=== PATIENT | female | born 1970 | race Caucasian/White ===

== ENCOUNTER → 2022-02-06 | Outpatient (CLI) | payer BC ==
--- NOTE | 2022-02-06 17:58 | P.GSHP ---
History of Present Illness H&P Date: 02/06/22 Chief Complaint: Abnormal right breast mammogram Tara is a 51-year-old [place] [address]. Additional views were obtained and [id number]. Microcalcifications of concern were identified in the right breast in the upper outer aspect. No lesions of concern were identified in the left breast. The patient herself does not feel any new lumps masses or nodules of concern in either breast. She does have uterine fibroids and has been receiving progesterone 2 weeks on and 2 weeks off for the past 6 months. The patient has had bilateral occasional yellow discharge there is been no blood present in this and she has had the intermittent discharge for years. Caffeine: One glass of pop per day Nicotine: Negative Chocolate: Daily control pills: Approximately 1 year 5 years ago Family history: Maternal grandfather: Cancer uncertain of the type Paternal grandmother: Lung cancer she was a smoker Hormonal history: Menarche: 14 G0 Menopause: She is still having menstrual periods, she is taking just around for the past 6 months every other 2 weeks and has recently finished a dose Social history: Nicotine: Negative Alcohol: Occasional Drugs: Negative Medical history: Hypothyroid Anxiety Uterine fibroids Surgical history: eye surgery as a child - Constitutional Constitutional: Denies chills, Denies fever - EENT Eyes: bilateral as per HPI Ears, nose, mouth and throat: Denies headache, Denies sore throat - Breasts Breasts: bilateral: as per HPI - Cardiovascular Cardiovascular: Denies chest pain, Denies shortness of breath - Respiratory Respiratory: Denies cough, Denies 7 - Gastrointestinal Gastrointestinal: Denies abdominal pain, Denies diarrhea, Denies nausea, Denies vomiting - Genitourinary (Female) Genitourinary: Denies dysuria, Denies hematuria - Menstruation Menstruation: Reports as per HPI - Musculoskeletal Comment: Plantar fasciitis - Integumentary Comment: Dry skin - Neurological Neurological: Denies numbness, Denies weakness - Psychiatric Psychiatric: Reports anxiety - Endocrine Comment: Hypothyroid - Allergic/Immunologic Allergic/Immunologic: Reports seasonal allergies Medications and Allergies Home Medications Medication Instructions Recorded Confirmed Type Citalopram Hydrobromide [CeleXA] 20 mg PO DAILY 02/05/22 02/05/22 History Levothyroxine Sodium [Synthroid] 88 mcg PO DAILY 02/05/22 02/05/22 History buPROPion SR [Wellbutrin SR] 150 mg PO BID 02/05/22 02/05/22 History Allergies Allergy/AdvReac Type Severity Reaction Status Date / Time No Known Allergies Allergy Verified 02/05/22 15:40 Surgical - Exam - General well developed, well nourished, no distress - Eyes normal ocular movement - ENT no hearing loss, no congestion - Neck trachea midline - Respiratory normal respiratory effort, clear to auscultation - Cardiovascular Rhythm: regular Heart Sounds: normal: S1, S2 - Abdomen Abdomen: soft - Integumentary Normal turgor - Neurologic no disoriented, no combative - Musculoskeletal normal gait, normal posture - Psychiatric oriented to time, oriented to person, oriented to place, speech is normal, memory intact Breast examination: BRA: 38DD Inspection: Bilateral grade 3 ptosis Palpation: Right breast: No dominant masses or nodules of concern of multiple positional exam Right axilla: No adenopathy of concern Left breast: Multiple positional exam no dominant masses or nodules of concern Left axilla: No adenopathy of concern Fungal infection under both breast Right breast is larger than left breast Results Mammogram reviewed with Dr. De Assessment and Plan Assessment: Impression: Mammographic abnormality right breast for which stereotactic core biopsy is recommended Fungal infection under her breast Fibrocystic breast changes Plan: Right breast are tactic core biopsy Nystatin for fungal infection Risks and benefits of stereotactic core biopsy discussed with the patient. Alternatives such as watchful waiting or resection in the operating room not recommended. Patient understands risks and benefits and wishes to proceed. Risks include but are not limited to bleeding, infection, reaction to the anesthetic. Additionally of the lesion were not to be felt to be concordant with biopsy results additional procedure may be required. Cc: Dr. Montero
== END ==
LOC: MERGE 13:00 → WWCWWP 17:52
PROVIDERS: ATTEND Surgery
DX: R92.8 Other abnormal and inconclusive findings on diagnostic imaging of breast (principal); N60.19 Diffuse cystic mastopathy of unspecified breast; E03.9 Hypothyroidism, unspecified; F41.9 Anxiety disorder, unspecified; B36.9 Superficial mycosis, unspecified

== ENCOUNTER → 2022-02-13 | Day surgery (SDC) | payer BC ==
[2022-02-13 08:27] VITALS: BP 137/78; PULSE 69; RESP 26; TEMP 98.2
--- NOTE | 2022-02-19 10:15 | MM ---
Risk Values: [place] 5 year model risk: 0.6%. NCI Lifetime model risk: 6.0%. Pathology Description: Approach: Lateral to Medial Needle Type: Eviva Cores: 7 Skin Nicks: 1 Gauge: 9 The procedure of stereotactic guided core biopsy was explained to the patient. Benefits, alternatives, and risks were discussed. An informed consent was then obtained. The shortness pathway for biopsy was chosen. Shortness pathway was lateral to medial approach. I performed the localization, then performed the remainder of the procedure. Overlying skin is cleansed with Betadine. Lidocaine was used as anesthetic into the skin and deeper tissue. Lidocaine with epinephrine is used as anesthetic into the deeper tissue during sampling. A vacuum assisted biopsy gun was used to obtain multiple core samples. The patient tolerated the procedure well without any immediate complication. The patient was kept in the radiology department for short stay after the procedure and then discharged home in stable condition. Targeted calcifications are identified in specimen mammogram. Post biopsy mammogram shows the clip to appear in satisfactory position relative to the targeted area of concern on the preprocedure images. Impression: SUCCESSFUL, UNCOMPLICATED STEREOTACTIC GUIDED CORE BIOPSY OF AREA OF CONCERN IN THE RIGHT BREAST. The procedure of stereotactic guided core biopsy was explained to the patient. Benefits, alternatives, and risks were discussed. An informed consent was then obtained. The shortness pathway for biopsy was chosen. Shortness pathway was lateral to medial approach. I performed the localization, then performed the remainder of the procedure. Overlying skin is cleansed with Betadine. Lidocaine was used as anesthetic into the skin and deeper tissue. Lidocaine with epinephrine is used as anesthetic into the deeper tissue during sampling. A vacuum assisted biopsy gun was used to obtain multiple core samples. The patient tolerated the procedure well without any immediate complication. The patient was kept in the radiology department for short stay after the procedure and then discharged home in stable condition. Targeted calcifications are identified in specimen mammogram. Post biopsy mammogram shows the clip to appear in satisfactory position relative to the targeted area of concern on the preprocedure images. Low to Intermediate index of suspicion noted at time of procedure. Impression: SUCCESSFUL, UNCOMPLICATED STEREOTACTIC GUIDED CORE BIOPSY OF AREA OF CONCERN IN THE RIGHT BREAST. Pathology Results: Result: Benign, Fibrocystic change. RIGHT BREAST, CORE BIOPSY: Fibrocystic change with apocrine metaplasia and columnar cell change/hyperplasia and microcalcification. See note. Overall Assessment: Benign Management: Diagnostic Mammogram of the right breast in 6 months. Electronically signed and approved by: Jai Marmolejo M.D.
== END ==
LOC: RADMAMWWP 07:03 → MERGE 08:00
PROVIDERS: ATTEND Surgery
DX: N60.11 Diffuse cystic mastopathy of right breast (principal); N60.81 Other benign mammary dysplasias of right breast; N62 Hypertrophy of breast; R92.0 Mammographic microcalcification found on diagnostic imaging of breast; R92.8 Other abnormal and inconclusive findings on diagnostic imaging of breast
CPT/HCPCS: 88305; 19081; A4648; J2001

== ENCOUNTER → 2022-02-21 | Outpatient (CLI) | payer BC ==
[2022-02-21 08:39] VITALS: BP 133/83; PULSE 71; RESP 16; TEMP 98.2
--- NOTE | 2022-02-21 08:40 | P.PN ---
Subjective Progress Note Date: 02/21/22 Principal diagnosis: Fibrocystic breast disease Tara is a 51-year-old [place] [address]. Additional views were obtained and [id number]. Microcalcifications of concern were identified in the right breast in the upper outer aspect. No lesions of concern were identified in the left breast. The patient herself does not feel any new lumps masses or nodules of concern in either breast. She does have uterine fibroids and has been receiving progesterone 2 weeks on and 2 weeks off for the past 6 months. The patient has had bilateral occasional yellow discharge there is been no blood present in this and she has had the intermittent discharge for years. She underwent a stereotactic core biopsy of the right breast and 6222. Pathology was benign and concordant. She tolerated the procedure without difficulty. The patient states yesterday she noticed some discharge from the left nipple area which was brown in nature. She is able to extrude that again this morning and guaiac study shows that there is blood present. Caffeine: One glass of pop per day Nicotine: Negative Chocolate: Daily control pills: Approximately 1 year 5 years ago Family history: Maternal grandfather: Cancer uncertain of the type Paternal grandmother: Lung cancer she was a smoker Hormonal history: Menarche: 14 G0 Menopause: She is still having menstrual periods, she is taking just around for the past 6 months every other 2 weeks and has recently finished a dose Social history: Nicotine: Negative Alcohol: Occasional Drugs: Negative Medical history: Hypothyroid Anxiety Uterine fibroids Surgical history: eye surgery as a child - Constitutional Constitutional: Denies chills, Denies fever - EENT Eyes: bilateral as per HPI Ears, nose, mouth and throat: Denies headache, Denies sore throat - Breasts Breasts: bilateral: as per HPI - Cardiovascular Cardiovascular: Denies chest pain, Denies shortness of breath - Respiratory Respiratory: Denies cough - Gastrointestinal Gastrointestinal: Denies abdominal pain, Denies diarrhea, Denies nausea, Denies vomiting - Genitourinary (Female) Genitourinary: Denies dysuria, Denies hematuria - Menstruation Menstruation: Reports as per HPI - Musculoskeletal Comment: Plantar fasciitis - Integumentary Comment: Dry skin - Neurological Neurological: Denies numbness, Denies weakness - Psychiatric Psychiatric: Reports anxiety - Endocrine Comment: Hypothyroid - Allergic/Immunologic Allergic/Immunologic: Reports seasonal allergies Objective - Constitutional General appearance: Present: cooperative - EENT Eyes: Present: EOMI ENT: Present: hearing grossly normal - Neck Neck: Present: normal ROM - Respiratory Respiratory: bilateral: CTA - Cardiovascular Rhythm: regular Heart sounds: normal: S1, S2 - Integumentary Integumentary Comment(s): Biopsy site right breast clean and dry, no evidence of infection mild ecchymosis On today's examination the patient thinks may attention that she has again devel oped discharge from the left nipple complex which is bloody in nature at this time Integumentary: Present: normal turgor Assessment and Plan Assessment: Impression: Patient status post right breast stereotactic core biopsy and 6222 benign and concordant Onset bloody nipple discharge left nipple Plan: Repeat right breast mammogram in 6 months with position exam at that time Left breast ultrasound particular attention to the periareolar area and patient to follow up after ultrasound is done/possible left duct exploration for bloody nipple discharge CC: Kylah
== END ==
LOC: WWCWWP 08:07 → MERGE 08:40
PROVIDERS: ATTEND Surgery
DX: N60.91 Unspecified benign mammary dysplasia of right breast (principal); N64.52 Nipple discharge; E03.9 Hypothyroidism, unspecified; F41.9 Anxiety disorder, unspecified

== ENCOUNTER → 2022-03-07 | Outpatient (CLI) | payer BC ==
--- NOTE | 2022-03-07 08:30 | USB ---
Reason for Exam: Clinical finding. Indicated Problems: Non-bloody discharge. Patient History: 02/13/2022, Benign MG stereo VAD BX RT on the right side. Risk Values: [place] 5 year model risk: 0.7%. NCI Lifetime model risk: 7.0%. Technique: Method: Whole Breast Handheld. Findings: The whole breast of the left breast, the axilla of the left breast and the retroareolar of the left breast were scanned. No solid or cystic masses are identified.. Overall Assessment: Negative, BI-RAD 1 Management: Screening Mammogram of both breasts in 10 months. A clinical breast exam by your physician is recommended on an annual basis and results should be correlated with mammographic findings. Electronically signed and approved by: Olu Meeks M.D. Radiologis
== END | disposition home or self-care (01) ==
LOC: RADUSWWP 07:37
PROVIDERS: ATTEND Surgery
DX: R92.8 Other abnormal and inconclusive findings on diagnostic imaging of breast (principal); N64.52 Nipple discharge

== ENCOUNTER → 2022-03-28 | Outpatient (CLI) | payer BC ==
[2022-03-28 16:18] VITALS: BP 134/81; PULSE 86; RESP 18; TEMP 98.4
--- NOTE | 2022-03-28 16:40 | P.PN ---
Subjective Progress Note Date: 03/28/22 Principal diagnosis: bloody left nipple discharge Fibrocystic breast disease Tara is a 51-year-old white [place] [address]. Additional views were obtained [place] [id number]. Microcalcifications of concern were identified in the right breast in the upper outer aspect. No lesions of concern were identified in the left breast. The patient herself does not feel any new lumps masses or nodules of concern in either breast. She does have uterine fibroids and has been receiving progesterone 2 weeks on and 2 weeks off for the past 6 months. The patient has had bilateral occasional yellow discharge there is been no blood present in this and she has had the intermittent discharge for years. She underwent a stereotactic core biopsy of the right breast and 6222. Pathology was benign and concordant. She tolerated the procedure without difficulty. The patient states yesterday she noticed some discharge from the left nipple area which was brown in nature. She is able to extrude that again this morning and guaiac study shows that there is blood present. ultrasound of the left breast done on 03-07-22 BIRAD 1. Caffeine: One glass of pop per day Nicotine: Negative Chocolate: Daily control pills: Approximately 1 year 5 years ago Family history: Maternal grandfather: Cancer uncertain of the type Paternal grandmother: Lung cancer she was a smoker Hormonal history: Menarche: 14 G0 Menopause: She is still having menstrual periods, she is taking just around for the past 6 months every other 2 weeks and has recently finished a dose Social history: Nicotine: Negative Alcohol: Occasional Drugs: Negative Medical history: Hypothyroid Anxiety Uterine fibroids Surgical history: eye surgery as a child - Constitutional Constitutional: Denies chills, Denies fever - EENT Eyes: bilateral as per HPI Ears, nose, mouth and throat: Denies headache, Denies sore throat - Breasts Breasts: bilateral: as per HPI - Cardiovascular Cardiovascular: Denies chest pain, Denies shortness of breath - Respiratory Respiratory: Denies cough - Gastrointestinal Gastrointestinal: Denies abdominal pain, Denies diarrhea, Denies nausea, Denies vomiting - Genitourinary (Female) Genitourinary: Denies dysuria, Denies hematuria - Menstruation Menstruation: Reports as per HPI - Musculoskeletal Comment: Plantar fasciitis - Integumentary Comment: Dry skin - Neurological Neurological: Denies numbness, Denies weakness - Psychiatric Psychiatric: Reports anxiety - Endocrine Comment: Hypothyroid - Allergic/Immunologic Allergic/Immunologic: Reports seasonal allergies Objective - Vital Signs Vital signs: Vital Signs Temp 98.4 F 03/28/22 16:10 Pulse 86 03/28/22 16:10 Resp 18 03/28/22 16:10 BP 134/81 03/28/22 16:10 Pulse Ox 97 03/28/22 16:10 FiO2 Intake & Output 03/27/22 03/28/22 03/28/22 18:59 06:59 18:59 Weight 102.058 kg - Constitutional General appearance: Present: cooperative - EENT Eyes: Present: EOMI ENT: Present: hearing grossly normal - Neck Neck: Present: normal ROM - Respiratory Respiratory: bilateral: CTA - Cardiovascular Rhythm: regular Heart sounds: normal: S1, S2 - Integumentary Integumentary: Present: normal turgor - Musculoskeletal Musculoskeletal: Present: gait normal - Psychiatric Psychiatric: Present: A&O x's 3, appropriate affect, intact judgment & insight - Additional findings Additional findings: Beast Exam: BRA: 38DD Inspection: Bilateral grade 3 ptosis Palpation: Right breast: Multiple positional exam a dominant masses or nodules of concern Right axilla: No adenopathy of concern Left breast: Multi-positional exam no dominant masses or nodules of concern, no nipple discharge on today's exam Left axilla: No adenopathy of concern Assessment and Plan Assessment: Impression: Fibrocystic breast changes Primary nipple discharge left side was intermittently bloody but this has stopped no radiographic evidence of anything of concern additionally nothing palpable on exam of concern Plan: Close surveillance Bilateral mammogram in 6 months Patient to follow up sooner if any bloody nipple discharge or concerns CC: Dr. Montero
== END ==
LOC: WWCWWP 15:56
PROVIDERS: ATTEND Surgery
DX: N60.11 Diffuse cystic mastopathy of right breast (principal); N60.12 Diffuse cystic mastopathy of left breast; E03.9 Hypothyroidism, unspecified; F41.9 Anxiety disorder, unspecified

== ENCOUNTER → 2023-01-08 | Outpatient (CLI) | payer BC ==
--- NOTE | 2023-01-09 07:08 | MM ---
Reason for Exam: Screening (asymptomatic). Last screening mammogram was performed less than 1 month ago. Patient History: Menarche at age 13. Currently using Progesterone, starting at age 51. Hormonal Contraceptives, from age 41 until age 43. 02/13/2022, Benign MG stereo VAD BX RT on the right side. Last menstrual period: 11/23/2022 Risk Values: [place] 5 year model risk: 0.9%. NCI Lifetime model risk: 7.5%. Prior Study Comparison: 06/23/2017 Bilateral MG screening mammo w CAD - 2, [facility]. 08/03/2018 Bilateral MG screening mammo w CAD - 2, [facility]. 03/07/2020 Bilateral MG screening mammo w CAD - 2, [facility]. 01/01/2022 Bilateral MG screening mammo w CAD - 2, [facility]. 01/07/2022 Right MG 3D diag mammo wo cad RT, [facility]. Tissue Density: There are scattered fibroglandular densities. Findings: Analyzed By CAD. There are 2 biopsy clips in the right breast redemonstrated. There is occasional tiny benign-appearing round calcification bilaterally redemonstrated. There is no suspicious group of microcalcifications or new suspicious mass in either breast. Overall Assessment: Benign, BI-RAD 2 Management: Screening Mammogram of both breasts in 1 year. . Patient should continue monthly self-breast exams. A clinical breast exam by your physician is recommended on an annual basis. This exam should not preclude additional follow-up of suspicious palpable abnormalities. Note on [place] scores and lifetime risk: 1. A [place] score greater than 3% is considered moderate risk. If this is the case, consider specialist referral to assess eligibility for a risk reducing agent. 2. If overall lifetime risk for the development of breast cancer is 20% or higher, the patient may qualify for future screening with alternating mammogram and breast MRI. Electronically signed and approved by: Jai Marmolejo M.D.
== END | disposition home or self-care (01) ==
LOC: RADMAMWWP 08:01
PROVIDERS: ATTEND Surgery
DX: Z12.31 Encounter for screening mammogram for malignant neoplasm of breast (principal); Z98.890 Other specified postprocedural states
CPT/HCPCS: 77063; 77067